=== PATIENT | male | born 1980 | race Two or more races ===

== ENCOUNTER 2018-06-08 12:20 | Emergency (ER) | payer MEDICAID ==
[~2018-06-08] VITALS: Ht 175.3 cm; Wt 181.4 kg
[2018-06-08 13:47] VITALS: BP 127/74
[2018-06-08] MEDS ORDERED: DEXAMETHASONE SOD PHOS 10MG/1ML VIAL INJ IM ONE ×2 (14:45→15:15)
[2018-06-08] MEDS ORDERED: KETOROLAC TROMETH 60MG/2ML VIAL IM ONE ×2 (14:45→15:15)
[2018-06-08 14:57] LABS: Urine Bacteria NONE SEEN /hpf (None Seen); Urine Blood Negative /uL (Negative); Urine Mucus FEW (None Seen); Urine Specific Gravity 1.023 (1.001-1.035); Urine WBC 1 /hpf (0 - 3)
== END 2018-06-08 15:38 | disposition home or self-care (01) ==
LOC: ER 12:20
DX: R30.0 Dysuria (principal); G89.29 Other chronic pain; M54.16 Radiculopathy, lumbar region
CPT/HCPCS: 81001; 96372; 99284; J1100; J1885

== ENCOUNTER 2018-08-11 15:04 | Emergency (ER) | payer MEDICAID ==
[~2018-08-11] VITALS: Ht 185.4 cm; Wt 199.6 kg
[2018-08-11 15:08] VITALS: BP 153/91
[2018-08-11] MEDS ORDERED: KETOROLAC TROMETH 60MG/2ML VIAL IM ONE (17:15)
== END 2018-08-11 17:56 | disposition home or self-care (01) ==
LOC: ER 15:11
DX: S39.012A Strain of muscle, fascia and tendon of lower back, initial encounter (principal); E66.01 Morbid (severe) obesity due to excess calories; Z68.43 Body mass index [BMI] 50.0-59.9, adult; X50.1XXA Overexertion from prolonged static or awkward postures, initial encounter; Y93.89 Activity, other specified; Y92.89 Other specified places as the place of occurrence of the external cause; Y99.8 Other external cause status
CPT/HCPCS: 96372; 99283; J1885